=== PATIENT | female | born 1980 | race Two or more races ===

== ENCOUNTER 2018-06-29 21:50 | Inpatient (IN) | payer BC ==
[2018-06-29] MEDS ORDERED: Iohexol 240 (50 ml) PO STA (22:28)
[2018-06-29] MEDS ORDERED: Sodium Chloride 0.9% 1,000 ML IV STA (22:30)
--- NOTE | 2018-06-29 22:34 | ED PDOC ---
HPI: Abdomen Time Seen by Provider: 06/29/18 22:16 Chief Complaint (Nursing): Abdominal Pain Chief Complaint (Provider): Pelvic pain History Per: Patient History/Exam Limitations: no limitations Additional Complaint(s): Pt reports L pelvic pain c/w endometriosis pain X 3 days. Denies fever, nausea, vomiting, vaginal bleeding. Reports chronic diarrhea. Past Medical History Reviewed: Nursing Documentation, Vital Signs Vital Signs: Last Vital Signs Temp 98.4 F 06/29/18 22:07 Pulse 121 H 06/29/18 22:07 Resp 16 06/29/18 22:07 BP 151/104 H 06/29/18 22:07 Pulse Ox 97 06/29/18 22:07 - Medical History PMH: Cardia Arrhythmia Denies: Chronic Kidney Disease Other PMH: Unexplained resting tachycardia, endometriosis - Surgical History Surgical History: Cholecystectomy - Family History Family History: States: Unknown Family Hx - Social History Current smoker - smoking cessation education provided: No Alcohol: Occasional - Home Medications Home Medications: Ambulatory Orders Medication Instructions Recorded Atorvastatin [Lipitor] 40 mg PO HS 06/29/18 Dextroamphetamine/Amphetamine 20 mg PO BID 06/29/18 [Adderall 10 mg Tablet] Dulaglutide [Trulicity] 1.5 mg SQ SUN 06/29/18 Empagliflozin [Jardiance] 25 mg PO DAILY 06/29/18 Esomeprazole Magnesium [Nexium] 40 mg PO DAILY 06/29/18 Famotidine [Pepcid] 20 mg PO DAILY 06/29/18 Icosapent Ethyl [Vascepa] 1 g PO BID 06/29/18 MetFORMIN [glucoPHAGE] 1,000 mg PO BID 06/29/18 Metoprolol Succinate XL [Toprol XL] 25 mg PO DAILY 06/29/18 Ubidecarenone [Coenzyme Q10] 100 mg PO DAILY 06/29/18 Valsartan [Diovan] 40 mg PO DAILY 06/29/18 Venlafaxine [Effexor XR] 150 mg PO BID 06/29/18 - Allergies Allergies/Adverse Reactions: Allergies Allergy/AdvReac Type Severity Reaction Status Date / Time No Known Allergies Allergy Verified 06/29/18 22:08 Review of Systems Constitutional: Negative for: Fever, Chills Cardiovascular: Negative for: Chest Pain Respiratory: Negative for: Cough, Shortness of Breath Gastrointestinal: Positive for: Abdominal Pain, Diarrhea. Negative for: Nausea, Vomiting Genitourinary Female: Negative for: Dysuria, Hematuria, Vaginal Discharge, Vaginal Bleeding Musculoskeletal: Negative for: Back Pain Skin: Negative for: Rash, Lesions Neurological: Negative for: Headache Physical Exam - Reviewed Nursing Documentation Reviewed: Yes Vital Signs Reviewed: Yes - Physical Exam Appears: Positive for: Well, No Acute Distress Head Exam: Positive for: ATRAUMATIC, NORMAL INSPECTION Skin: Positive for: Normal Color, Warm, Dry Cardiovascular/Chest: Positive for: Tachycardia. Negative for: Irregularly Irregular Respiratory: Positive for: Normal Breath Sounds Gastrointestinal/Abdominal: Positive for: Bowel Sounds, Soft, Tenderness (LLQ). Negative for: Distended, Guarding, Rebound Back: Positive for: Normal Inspection Extremity: Positive for: Normal ROM Neurologic/Psych: Positive for: Alert, Oriented - Laboratory Results Result Diagrams: 07/01/18 05:50 07/01/18 05:50 - ECG O2 Sat by Pulse Oximetry: 97 Medical Decision Making Medical Decision Makin yo female with LLQ/pelvic pain. - labs - CT abd/pelvis - Morphine - IVF 22:25 Dr. Salmeron recommends labs, CT abd/pelvis, NPO after midnight, admit to his service. Disposition - Clinical Impression Clinical Impression: Intractable abdominal pain - Patient ED Disposition Is Patient to be Admitted: Yes - Disposition Disposition Time: 22:44 Condition: STABLE - Pt Status Changed To: Hospital Disposition Of: Inpatient - Admit Certification Admit to Inpatient:: After my assessment, the patient will require hospitalization for at least two midnights. This is because of the severity of symptoms shown, intensity of services needed, and/or the medical risk in this patient being treated as an outpatient. - POA Present On Arrival: Poor Glycemic Control
[2018-06-29] MEDS ORDERED: Iohexol 240 (50 ml) ONE (22:49)
[2018-06-29 22:57] LABS: BASO # 0.1 K/uL (0.0-0.2); BASO % 0.9 % (0.0-2.0); EOS # 0.4 K/uL (0.0-0.7); EOS % 5.3 % (0.0-4.0); HEMOGLOBIN 13.7 g/dL (12.0-16.0); LYMPH # 2.2 K/uL (1.0-4.3); LYMPH % 28.5 % (20.0-40.0); MEAN CELL VOLUME 85.5 fl (81.0-99.0); MEAN CORPUSCULAR HEMOGLOBIN 29.5 pg (27.0-31.0); MEAN CORPUSCULAR HGB CONC 34.5 g/dL (33.0-37.0); MEAN PLATELET VOLUME 6.9 fl (7.2-11.7); MONO # 0.4 K/uL (0.0-0.8); MONO % 5.2 % (0.0-10.0); NEUT # 4.7 K/uL (1.8-7.0); NEUT % 60.1 % (50.0-75.0); NRBC % 0.1 % (0.0-0.0); RBC 4.67 Mil/uL (3.80-5.20); WHITE BLOOD COUNT 7.8 K/uL (4.8-10.8)
[2018-06-29 23:05] LABS: SQUAMOUS EPITHIAL 1 /hpf (0-5); URINE BACTERIA RARE (<OCC); URINE BILIRUBIN NEGATIVE (NEGATIVE); URINE BLOOD NEGATIVE (NEGATIVE); URINE CLARITY CLEAR (Clear); URINE COLOR YELLOW (YELLOW); URINE GLUCOSE (UA) >=500 mg/dL (Normal); URINE LEUKOCYTE ESTERASE NEG Leu/uL (Negative); URINE PROTEIN 100 mg/dL (NEGATIVE); URINE UROBILINOGEN 0.2-1.0 mg/dL (0.2-1.0)
[2018-06-29 23:07] LABS: INR 0.9; PROTHROMBIN TIME 10.7 Seconds (9.8-13.1)
[2018-06-29 23:08] LABS: ALB/GLOB RATIO 1.2 (1.0-2.1); ALBUMIN 4.7 g/dL (3.5-5.0); BLOOD UREA NITROGEN 14 mg/dl (7-17); CALCIUM 9.5 mg/dL (8.4-10.2); GFR NON-AFRICAN AMERICAN > 60
[2018-06-29 23:10] LABS: ALT/SGPT 39 U/L (9-52); AST/SGOT 35 U/L (14-36)
[2018-06-29 23:31] LABS: PARTIAL THROMBOPLASTIN TIME 33.2 Seconds (25.6-37.1)
[2018-06-30] MEDS ORDERED: Iohexol 300 100 ML IJ ONE (01:46)
[2018-06-30] MEDS ORDERED: Sodium Chloride 0.9% 50 ML IV ONE (01:46)
[2018-06-30] MEDS ORDERED: Sodium Chloride 0.9% 1,000 ML IV SCH ×2 (06:30→15:15)
--- NOTE | 2018-06-30 08:53 | RAD ---
Date of service: 06/30/2018 HISTORY: pre op COMPARISON: No prior. FINDINGS: LUNGS: The lungs are well inflated and clear. PLEURA: No pleural effusions or pneumothorax. CARDIOVASCULAR: The heart is normal in size. No aortic atherosclerotic calcification present. OSSEOUS STRUCTURES: Within normal limits for the patient's age. VISUALIZED UPPER ABDOMEN: Normal. OTHER FINDINGS: None. IMPRESSION: No active pulmonary disease.
[2018-06-30] MEDS ORDERED: Chlorhexidine Gluconate 1 APPL/PKT TP ONE (10:05)
[2018-06-30] MEDS: Metoprolol Succinate 25 mg XL Tab PO SCH (11:05)
[2018-06-30] MEDS ORDERED: Rocuronium 10 mg/ml (5 ml) ONE ×2 (11:42→13:26)
[2018-06-30] MEDS ORDERED: Succinylcholine 200 mg/10 ml Inj IV ONE (11:42)
[2018-06-30] MEDS ORDERED: Propofol 10 mg/ml Inj (20 ML) ONE (11:42)
[2018-06-30] MEDS ORDERED: ePHEDrine 50 mg/ml Inj ONE (11:42)
[2018-06-30] MEDS ORDERED: Midazolam 2 MG/2 ML VIAL ONE (11:42)
--- NOTE | 2018-06-30 12:11 | CP.PCM.HP ---
History of Present Illness - History of Present Illness History of Present Illness: 38 yo with a long history of recurrent episodes of apelvic and abdominal pain. last night patient walked into Emergency room with acute onset of abdominopelvic pain Present on Admission - Present on Admission Any Indicators Present on Admission: No History of DVT/PE: No History of Uncontrolled Diabetes: No Urinary Catheter: No Decubitus Ulcer Present: No Review of Systems - Constitutional Constitutional: As Per HPI - Gastrointestinal Gastrointestinal: Abdominal Pain, Bloating, Cramping - Reproductive: Female Reproductive:Female: Dysmenorrhea, Dyspareunia, Pelvic Pain - Menstruation Menstruation: As Per HPI Past Patient History - Past Medical History & Family History Past Medical History?: Yes - Past Social History Smoking Status: Never Smoked - CARDIAC Hx Cardiac Disorders: Yes Hx Cardia Arrhythmia: Yes - PULMONARY Hx Respiratory Disorders: No - NEUROLOGICAL Hx Neurological Disorder: No - HEENT Hx HEENT Problems: No - RENAL Hx Chronic Kidney Disease: No - ENDOCRINE/METABOLIC Hx Endocrine Disorders: Yes Hx Diabetes Mellitus Type 2: Yes - HEMATOLOGICAL/ONCOLOGICAL Hx Blood Disorders: No Hx AIDS: No Hx Human Immunodeficiency Virus (HIV): No - INTEGUMENTARY Hx Dermatological Problems: No - MUSCULOSKELETAL/RHEUMATOLOGICAL Hx Musculoskeletal Disorders: No Hx Falls: No - GASTROINTESTINAL Hx Gastrointestinal Disorders: No - GENITOURINARY/GYNECOLOGICAL Hx Genitourinary Disorders: Yes Other/Comment: Endrometriosis - PSYCHIATRIC Hx Psychophysiologic Disorder: No Hx Substance Use: No - SURGICAL HISTORY Hx Surgeries: Yes Hx Cholecystectomy: Yes - ANESTHESIA Hx Anesthesia: Yes Hx Anesthesia Reactions: No Hx Malignant Hyperthermia: No Has any member of the family had a problem w/ anesthesia?: No Meds Allergies/Adverse Reactions: Allergies Allergy/AdvReac Type Severity Reaction Status Date / Time No Known Allergies Allergy Verified 06/29/18 22:08 Physical Exam - GI/Abdominal Exam GI & Abdominal Exam: Tenderness - Exam Bimanual exam: Cervical Motion Tendernes, Uterine Tenderness Results - Vital Signs Recent Vital Signs: Last Vital Signs Temp 97.9 F 06/30/18 11:51 Pulse 88 06/30/18 11:51 Resp 18 06/30/18 11:51 BP 144/84 06/30/18 11:51 Pulse Ox 98 06/30/18 11:51 - Labs Result Diagrams: 06/29/18 22:45 06/29/18 22:43 Labs: Laboratory Results - last 24 hr 06/29/18 06/29/18 06/29/18 22:24 22:43 22:45 WBC 7.8 RBC 4.67 Hgb 13.7 Hct 39.9 MCV 85.5 MCH 29.5 MCHC 34.5 RDW 14.0 Plt Count 380 MPV 6.9 L Neut % (Auto) 60.1 Lymph % (Auto) 28.5 [place] % (Auto) 5.2 Eos % (Auto) 5.3 H Baso % (Auto) 0.9 Neut # (Auto) 4.7 Lymph # (Auto) 2.2 [place] # (Auto) 0.4 Eos # (Auto) 0.4 Baso # (Auto) 0.1 PT INR APTT Sodium 137 Potassium 4.6 Chloride 102 Carbon Dioxide 22 Anion Gap 18 BUN 14 Creatinine 0.7 Est GFR ( Amer) > 60 Est GFR (Non-Af Amer) > 60 POC Glucose (mg/dL) 221 H Random Glucose 250 H Calcium 9.5 Total Bilirubin 0.9 AST 35 ALT 39 Alkaline Phosphatase 52 Total Protein 8.7 H Albumin 4.7 Globulin 4.0 H Albumin/Globulin Ratio 1.2 Urine Color Urine Clarity Urine pH Ur Specific Dorothy Urine Protein Urine Glucose (UA) Urine Ketones Urine Blood Urine Nitrate Urine Bilirubin Urine Urobilinogen Ur Leukocyte Esterase Urine RBC (Auto) Urine Microscopic WBC Ur Squamous Epith Cells Urine Bacteria 06/29/18 06/29/18 06/30/18 22:45 22:45 07:00 WBC RBC Hgb Hct MCV MCH MCHC RDW Plt Count MPV Neut % (Auto) Lymph % (Auto) [place] % (Auto) Eos % (Auto) Baso % (Auto) Neut # (Auto) Lymph # (Auto) [place] # (Auto) Eos # (Auto) Baso # (Auto) PT 10.7 INR 0.9 APTT 33.2 Sodium Potassium Chloride Carbon Dioxide Anion Gap BUN Creatinine Est GFR ( Amer) Est GFR (Non-Af Amer) POC Glucose (mg/dL) 139 H Random Glucose Calcium Total Bilirubin AST ALT Alkaline Phosphatase Total Protein Albumin Globulin Albumin/Globulin Ratio Urine Color Yellow Urine Clarity Clear Urine pH 6.0 Ur Specific Dorothy 1.016 Urine Protein 100 Urine Glucose (UA) >=500 Urine Ketones Trace Urine Blood Negative Urine Nitrate Negative Urine Bilirubin Negative Urine Urobilinogen 0.2-1.0 Ur Leukocyte Esterase Neg Urine RBC (Auto) 3 Urine Microscopic WBC 1 Ur Squamous Epith Cells 1 Urine Bacteria Rare Assessment & Plan - Assessment and Plan (Free Text) Assessment: acute abdomino pelvic pain rule out chronic ovarian torsion, endometriosis, chronic appendicitis Plan: emergency diagnostic laparoscopy - Date & Time Date: 06/30/18 Time: 07:00
[2018-06-30] MEDS ORDERED: Bupivacaine HCl 0.5% PF (30 ml) Inj ONE (12:14)
[2018-06-30] MEDS ORDERED: Lactated Ringer's 1,000 ML IV ONE ×2 (12:36→13:10)
[2018-06-30] MEDS ORDERED: Neostigmine 1:1000 (1 mg/ml) Inj ONE (12:59)
[2018-06-30] MEDS ORDERED: Bupivacaine 0.5% Inj(30mL) IJ ONE (13:03)
--- NOTE | 2018-06-30 13:13 | CT ---
Date of service: 06/30/2018 PROCEDURE: CT Abdomen and Pelvis with contrast HISTORY: LLQ pain COMPARISON: None available. TECHNIQUE: CT scan of the abdomen and pelvis was performed after administration of intravenous contrast. Oral contrast was administered. Coronal and sagittal reformatted images were obtained. Contrast dose: 95 mL Omnipaque 300 Radiation dose: Total exam DLP = 892.01 mGy-cm. This CT exam was performed using one or more of the following dose reduction techniques: Automated exposure control, adjustment of the mA and/or kV according to patient size, and/or use of iterative reconstruction technique. FINDINGS: LOWER THORAX: The visualized lungs are clear. LIVER: 300 moderate hepatomegaly and diffuse fatty liver. No gross lesion or ductal dilatation. GALLBLADDER AND BILE DUCTS: Surgically absent. PANCREAS: Normal in size with homogeneous enhancement. No gross lesion or ductal dilatation. SPLEEN: Normal in size and appearance. ADRENALS: No discrete nodule. KIDNEYS AND URETERS: Normal in size with homogeneous enhancement. No hydronephrosis. No solid mass. VASCULATURE: No aortic aneurysm. No aortic atherosclerotic calcifications present. BOWEL: Evaluation of the bowel is limited in the absence of oral contrast. The small bowel loops are normal in caliber. The colon is grossly normal in appearance. There is scattered colonic diverticulosis without CT evidence for acute diverticulitis. No bowel wall thickening or obstruction. APPENDIX: Normal appendix. PERITONEUM: No free fluid. No free air. LYMPH NODES: No enlarged lymph nodes. BLADDER: Partially decompressed. REPRODUCTIVE: The uterus is normal in size. BONES: No acute fracture. Within normal limits for the patient's age. OTHER FINDINGS: None. IMPRESSION: No acute abdominal or pelvic abnormality. Scattered colonic diverticulosis without CT evidence for acute diverticulitis Moderate hepatomegaly and fatty liver. A preliminary report was provided by Carte Blanche.
--- NOTE | 2018-06-30 14:09 | PCM.OP ---
Operative Report - Operative Report Date of Surgery/Procedure: 06/30/18 Time of Surgery/Procedure: 12:00 Surgeon: Dr. Dlel Roth Buckle Sewer Machine: dr. Mauricio Salmeron Anesthesia/Sedation: general/Dr. Garrett Pre-Operative Diagnosis: abdominal pain Post-Operative Diagnosis: same Indication for Surgery: abdominal pain Operative Findings: extensive small bowel adhesions Procedure/Operation Description: 1-Extensive lysis of small bowel adhesions Brief History: This 38 year old woman was admitted through the ED with abdominal pain by the DIRECTOR OF SOFTWARE DEVELOPMENT service. Intraoperative surgical assistan e consultation was requested by Dr. Vasquez for extensive adhesions of the intestines. Description of the Procedure: Dr. Salmeron had already initiated the laparoscopic procedure when he noted extensive adhesions to the small bowel from the previous surgery (separate dictation Dr. Vasquez). After taking control of the laparoscopy the dense adhesions were lysed with blunt and sharp dissection with the aid of electrocautery. The adhesions extended from the mid portion of the small bowel to the anterior abdominal wall. All adhesions were lysed and the pelvic structures were visualized. The operation was turned over to Dr. Salmeron (separate dictation Dr. Vasquez). Estimated Blood Loss: 4 cc Complications: none Discharge & Condition: stable
[2018-06-30] MEDS: HYDROmorphone 0.5 mg/0.5 ml ISec IVP PRN ×2 (14:27→14:40)
[2018-06-30] MEDS ORDERED: Oxycodone/Acetaminophen 5/325 mg Tab PO PRN (15:12)
--- NOTE | 2018-06-30 19:34 | CARD ---
APPROVED REPORT Date of service: 06/30/2018 EKG Measurement Heart [id number] <Conclusion> Normal sinus rhythm Normal ECG
[2018-07-01 04:42] VITALS: RESP 20
[2018-07-01 06:42] LABS: BASO # 0.1 K/uL (0.0-0.2); BASO % 0.7 % (0.0-2.0); EOS # 0.4 K/uL (0.0-0.7); EOS % 4.7 % (0.0-4.0); HEMOGLOBIN 11.5 g/dL (12.0-16.0); LYMPH # 2.3 K/uL (1.0-4.3); LYMPH % 30.4 % (20.0-40.0); MEAN CELL VOLUME 86.8 fl (81.0-99.0); MEAN CORPUSCULAR HEMOGLOBIN 28.8 pg (27.0-31.0); MEAN CORPUSCULAR HGB CONC 33.2 g/dL (33.0-37.0); MEAN PLATELET VOLUME 6.8 fl (7.2-11.7); MONO # 0.4 K/uL (0.0-0.8); MONO % 5.2 % (0.0-10.0); NEUT # 4.5 K/uL (1.8-7.0); NRBC % 0.2 % (0.0-0.0); RBC 3.99 Mil/uL (3.80-5.20); RED CELL DISTRIBUTION WIDTH 14.1 % (11.5-14.5); WHITE BLOOD COUNT 7.6 K/uL (4.8-10.8)
[2018-07-01 06:59] LABS: BLOOD UREA NITROGEN 10 mg/dl (7-17); CALCIUM 8.7 mg/dL (8.4-10.2); GFR NON-AFRICAN AMERICAN > 60
[2018-07-01 08:12] VITALS: TEMP 97.9
[2018-07-01] MEDS ORDERED: UBIDECARENONE 100 MG PO SCH (09:00)
[2018-07-01] MEDS ORDERED: Venlafaxine 150 mg ER Cap PO SCH (09:00)
[2018-07-01] MEDS ORDERED: AMPHETAMINE SALT COMBINATION 10 MG TAB PO SCH (09:00)
[2018-07-01] MEDS ORDERED: ICOSAPENT ETHYL 1 GM PO SCH (09:00)
[2018-07-01] MEDS ORDERED: Metoprolol Succinate 25 mg XL Tab PO SCH (09:00)
[2018-07-01] MEDS ORDERED: Pantoprazole 40 mg EC Tab PO SCH (09:00)
[2018-07-01] MEDS: Metoprolol Succinate 25 mg XL Tab PO SCH (09:53)
[2018-07-01 13:20] VITALS: BP 138/83; PULSE 97
[2018-07-01 15:13] VITALS: O2SAT 97
== END 2018-07-01 16:20 | disposition home or self-care (01) | DRG 337 ==
LOC: H.ER 21:50 → H.ERHOLD 22:44 → H.TEL 06-30 06:26 → H.MEDSURG1 07-01 00:40
PROVIDERS: ADMIT Obstetrics & Gynecology Reproductive Endocrinology; ATTEND Obstetrics & Gynecology Reproductive Endocrinology
PROC: 0DN84ZZ Release Small Intestine, Percutaneous Endoscopic Approach (ICD-10-PCS; principal; 2018-06-30 13:30)
DX: K66.0 Peritoneal adhesions (postprocedural) (postinfection) (principal); I49.9 Cardiac arrhythmia, unspecified; Z90.49 Acquired absence of other specified parts of digestive tract; E11.9 Type 2 diabetes mellitus without complications; E78.5 Hyperlipidemia, unspecified; Z87.891 Personal history of nicotine dependence